=== PATIENT | male | born 1960 | race Hispanic/Latino ===

== ENCOUNTER 2021-01-19 07:31 | Emergency (ER) | payer BC, SELFPAY ==
[2021-01-19 08:03] LABS: Absolute Lymphocytes (CBC) 0.8 K/uL (0.7-4.9); Basophils % 0.7 % (0-1.3); Hematocrit 39.9 % (39.6-49.0); Lymphocytes % 17.3 % (15.3-44.8); MPV 9.8 fL (7.6-11.3); RBC Red Blood Cell Count 4.34 M/uL (4.33-5.43)
[2021-01-19 08:09] LABS: Protime INR 1.04
[2021-01-19] MEDS ORDERED: ONDANSETRON 4 MG/2 ML VIAL ONE (08:30)
[2021-01-19] MEDS ORDERED: dexAMETHasone 10 MG/ML VIAL ONE (08:30)
[2021-01-19] MEDS ORDERED: AZITHROMYCIN 250 MG TAB ONE (08:30)
[2021-01-19 09:05] LABS: ALT/SGPT 26 U/L (12-78); AST/SGOT 24 U/L (15-37); Albumin 3.2 g/dL (3.4-5.0); Alkaline Phosphatase 60 U/L (45-117); BUN Blood Urea Nitrogen 11 mg/dL (7-18); Bicarbonate 27 mmol/L (21-32); Bilirubin Direct 0.1 mg/dL (0-0.2); Bilirubin Total 0.4 mg/dL (0.2-1.0); Glucose Level 134 mg/dL (74-106); Magnesium 2.4 mg/dL (1.8-2.4); NT PRO-BNP 214 pg/mL (<125); Potassium 4.3 mmol/L (3.5-5.1); Protein, Total 7.2 g/dL (6.4-8.2); Sodium Level 138 mmol/L (136-145); Troponin (Emerg Dept Use Only) < 0.02 ng/mL (0.0-0.045)
--- NOTE | 2021-01-19 09:31 | RAD REPORT ---
EXAM DESCRIPTION: Ying Single View01/19/2021 8:25 am CLINICAL HISTORY: Chest pain COMPARISON: none FINDINGS: Moderate left and [id number] right pulmonary opacities. Heart is normal size IMPRESSION: Moderate left and [id number] right pulmonary opacities probably pneumonia
--- NOTE | 2021-01-19 09:32 | ER ---
Nurse's Notes [facility] Name: Benedicto Joy Age: 60 yrs Sex: Male : 1960 Arrival Date: 01/19/2021 Time: 07:33 Bed 6 Private MD: Diagnosis: Coronavirus infection, unspecified;Coronavirus as the cause of diseases classified elsewhere Presentation: 01/19 07:34 Chief complaint: Patient states: "I was positive for COVID 12 days ago and I haven't aa5 really been sick just a little bit of nausea and headache but over the last few days every time I take deep breath it makes me cough and I feel like I am not getting enough air into my lungs". Pt denies chest pain, denies SOB. 07:34 Acuity: RUSS 3 aa5 07:34 Onset of symptoms was December 2020. aa5 07:34 Coronavirus screen: Client presents with at least one sign or symptom that may indicate aa5 coronavirus-19. Standard/surgical mask placed on the client. Provider contacted for isolation considerations. Ebola Screen: Patient negative for fever greater than or equal to 101.5 degrees Fahrenheit, and additional compatible Ebola Virus Disease symptoms. Initial Sepsis Screen: Does the patient meet any 2 criteria? No. Patient's initial sepsis screen is negative. Does the patient have a suspected source of infection? Yes:. Risk Assessment: Do you want to hurt yourself or someone else? Patient reports no desire to harm self or others. 07:34 Method Of Arrival: Ambulatory aa5 Historical: - Allergies: 07:34 No Known Allergies; aa5 - PMHx: 07:34 Diabetes - NIDDM; Hypertension; Hyperlipidemia; aa5 - PSHx: 07:34 None; aa5 - Immunization history:: Adult Immunizations unknown. - Social history:: Smoking status: Patient denies any tobacco usage or history of. Patient/guardian denies using alcohol, street drugs, The patient lives with family. - Family history:: not pertinent. Screenin:27 Abuse screen: Denies threats or abuse. Nutritional screening: No deficits noted. jd3 Tuberculosis screening: No symptoms or risk factors identified. Fall Risk Ambulatory Aid- None/Bed Rest/Nurse Assist (0 pts). Gait- Normal/Bed Rest/Wheelchair (0 pts) Mental Status- Oriented to own ability (0 pts). Total Jorge Fall Scale indicates No Risk (0-24 pts). Assessment: 08:25 General: Appears in no apparent distress. comfortable, Behavior is calm, cooperative, jd3 appropriate for age. Pain: Complains of pain in chest Aggravated by coughing. Neuro: Level of Consciousness is awake, alert, obeys commands, Oriented to person, place, time, situation. Cardiovascular: Heart tones present Capillary refill < 3 seconds Patient's skin is warm and dry. Rhythm is regular. Respiratory: Reports pain with cough Airway is patent Respiratory effort is even, unlabored, Respiratory pattern is regular, symmetrical, Denies cough, shortness of breath. GI: No signs and/or symptoms were reported involving the gastrointestinal system. : No signs and/or symptoms were reported regarding the genitourinary system. EENT: No signs and/or symptoms were reported regarding the EENT system. Derm: Skin is intact, Skin is dry, Skin is normal, Skin temperature is warm. Musculoskeletal: Circulation, motion, and sensation intact. Range of motion: intact in all extremities. 09:27 Reassessment: Patient appears in no apparent distress at this time. No changes from jd3 previously documented assessment. Patient and/or family updated on plan of care and expected duration. Pain level reassessed. Patient is alert, oriented x 3, equal unlabored respirations, skin warm/dry/pink. 09:56 Reassessment: Patient appears in no apparent distress at this time. Patient and/or jd3 family updated on plan of care and expected duration. Pain level reassessed. Patient is alert, oriented x 3, equal unlabored respirations, skin warm/dry/pink. Patient states feeling better. Vital Signs: 07:34 BP 127 / 67; Pulse 74; Resp 18 S; Temp 98.5(O); Pulse Ox 100% on R/A; Weight 63.5 kg aa5 (R); Height 5 ft. 3 in. (160.02 cm) (R); Pain 0/10; 09:27 BP 115 / 64; Pulse 75; Resp 16 S; Pulse Ox 98% on R/A; jd3 07:34 Body Mass Index 24.80 (63.50 kg, 160.02 cm) aa5 ED Course: 07:33 Patient arrived in ED. as 07:34 Arm band placed on Patient placed in an exam room, on a stretcher. aa5 07:35 Asya Gentile MD is Attending Physician. ma2 07:50 Triage completed. aa5 08:07 Miles Krishnamurthy RN is Primary Nurse. jd3 08:22 Inserted saline lock: 20 gauge in right forearm, using aseptic technique. Blood jd3 collected. 08:25 XRAY Chest (1 view) In Process Unspecified. EDMS 08:27 Patient has correct armband on for positive identification. Placed in gown. Bed in low jd3 position. Call light in reach. Side rails up X 1. domestic violence counselor on. Pulse ox on. NIBP on. 09:57 No provider procedures requiring assistance completed. IV discontinued, intact, jd3 bleeding controlled, No redness/swelling at site. Pressure dressing applied. Administered Medications: 08:21 Drug: Decadron - Dexamethasone 10 mg Route: IVP; Site: right forearm; jd3 09:20 Follow up: Response: No adverse reaction jd3 08:21 Drug: AZITHromycin 500 mg Route: PO; jd3 09:20 Follow up: Response: No adverse reaction jd3 08:22 Drug: Zofran (Ondansetron) 4 mg Route: IVP; Site: right forearm; jd3 09:20 Follow up: Response: No adverse reaction jd3 Outcome: 09:31 Discharge ordered by . ma2 09:57 Discharged to home ambulatory, with family. jd3 09:57 Condition: stable 09:57 Discharge instructions given to patient, Instructed on discharge instructions, follow up and referral plans. medication usage, Demonstrated understanding of instructions, follow-up care, medications, Prescriptions given X 5 09:58 Patient left the ED. jd3 Signatures: Dispatcher [employer] Claritza Reed Audri, RN RN aa5 Davies, Jonathon, RN RN Asya Unger MD MD ma2
--- NOTE | 2021-01-19 09:32 | EDPHYS ---
Physician Documentation [facility] Name: Benedicto Joy Age: 60 yrs Sex: Male : 1960 Arrival Date: 01/19/2021 Time: 07:33 Bed 6 Private MD: ED Physician Asya Gentile HPI: 01/19 08:10 This 60 yrs old Male presents to ER via Ambulatory with complaints of Doesn't ma2 Feel Right. 08:10 This 60 yrs old Male presents to ER via Ambulatory with complaints of cough + ma2 covid. 08:10 Onset: gradually, 1 week(s) ago. Severity of pain: At its worst the pain was mild in ma2 the emergency department the pain is unchanged. here with cough and covid was +, no sob or diarrhea, no chest pain . Historical: - Allergies: 07:34 No Known Allergies; aa5 - PMHx: 07:34 Diabetes - NIDDM; Hypertension; Hyperlipidemia; aa5 - PSHx: 07:34 None; aa5 - Immunization history:: Adult Immunizations unknown. - Social history:: Smoking status: Patient denies any tobacco usage or history of. Patient/guardian denies using alcohol, street drugs, The patient lives with family. - Family history:: not pertinent. ROS: 08:10 Constitutional: Negative for fever, chills, and weight loss. ma2 08:10 All other systems are negative. Exam: 08:10 Constitutional: This is a well developed, well nourished patient who is awake, alert, ma2 and in no acute distress. Head/Face: Normocephalic, atraumatic. Eyes: Pupils equal round and reactive to light, extra-ocular motions intact. Lids and lashes normal. Conjunctiva and sclera are non-icteric and not injected. Cornea within normal limits. Periorbital areas with no swelling, redness, or edema. ENT: Nares patent. No nasal discharge, no septal abnormalities noted. Tympanic membranes are normal and external auditory canals are clear. Oropharynx with no redness, swelling, or masses, exudates, or evidence of obstruction, uvula midline. Mucous membranes moist. Neck: Trachea midline, no thyromegaly or masses palpated, and no cervical lymphadenopathy. Supple, full range of motion without nuchal rigidity, or vertebral point tenderness. No Meningismus. Chest/axilla: Normal chest wall appearance and motion. Nontender with no deformity. No lesions are appreciated. Cardiovascular: Regular rate and rhythm with a normal S1 and S2. No gallops, murmurs, or rubs. Normal PMI, no JVD. No pulse deficits. Respiratory: Lungs have equal breath sounds bilaterally, clear to auscultation and percussion. No rales, rhonchi or wheezes noted. No increased work of breathing, no retractions or nasal flaring. Abdomen/GI: Soft, non-tender, with normal bowel sounds. No distension or tympany. No guarding or rebound. No evidence of tenderness throughout. MS/ Extremity: Pulses equal, no cyanosis. Neurovascular intact. Full, normal range of motion. Neuro: Awake and alert, GCS 15, oriented to person, place, time, and situation. Cranial nerves II-XII grossly intact. Motor strength 5/5 in all extremities. Sensory grossly intact. Cerebellar exam normal. Normal gait. Vital Signs: 07:34 BP 127 / 67; Pulse 74; Resp 18 S; Temp 98.5(O); Pulse Ox 100% on R/A; Weight 63.5 kg aa5 (R); Height 5 ft. 3 in. (160.02 cm) (R); Pain 0/10; 09:27 BP 115 / 64; Pulse 75; Resp 16 S; Pulse Ox 98% on R/A; jd3 07:34 Body Mass Index 24.80 (63.50 kg, 160.02 cm) aa5 MDM: 07:35 Patient medically screened. ak2 08:10 Differential diagnosis: anxiety, gastroesophageal reflux disease (GERD), pneumonia. ma2 Data reviewed: vital signs, nurses notes. 09:30 Counseling: I had a detailed discussion with the patient and/or guardian regarding: the [facility] historical points, exam findings, and any diagnostic results supporting the discharge/admit diagnosis, the presence of at least one elevated blood pressure reading (>120/80) during this emergency department visit, the need for outpatient follow up. 01/19 07:35 Order name: Basic Metabolic Panel [facility] 01/19 07:35 Order name: CBC with Diff [facility] 01/19 07:35 Order name: LFT's; Complete Time: 09:33 [facility] 01/19 07:35 Order name: Magnesium; Complete Time: 09:33 ma2 01/19 07:35 Order name: NT PRO-BNP; Complete Time: 09:33 ma2 01/19 07:35 Order name: PT-INR; Complete Time: 08:32 2 01/19 07:35 Order name: Troponin (emerg Dept Use Only); Complete Time: 09:33 ma2 01/19 07:35 Order name: XRAY Chest (1 view); Complete Time: 09:33 ma2 01/19 07:35 Order name: EKG; Complete Time: 07:36 ma2 01/19 07:36 Order name: Basic Metabolic Panel; Complete Time: 09:33 EDMS 01/19 07:36 Order name: CBC with Automated Diff; Complete Time: 08:32 EDMS 01/19 07:35 Order name: Cardiac monitoring; Complete Time: 08:07 01/19 07:35 Order name: EKG - Nurse/Tech; Complete Time: 08:07 01/19 07:35 Order name: IV Saline Lock; Complete Time: 08:07 2 01/19 07:35 Order name: Labs collected and sent; Complete Time: 08:07 01/19 07:35 Order name: O2 Per Protocol; Complete Time: 08:07 01/19 07:35 Order name: O2 Sat Monitoring; Complete Time: 08:07 ma2 Administered Medications: 08:21 Drug: Decadron - Dexamethasone 10 mg Route: IVP; Site: right forearm; jd3 09:20 Follow up: Response: No adverse reaction jd3 08:21 Drug: AZITHromycin 500 mg Route: PO; jd3 09:20 Follow up: Response: No adverse reaction jd3 08:22 Drug: Zofran (Ondansetron) 4 mg Route: IVP; Site: right forearm; jd3 09:20 Follow up: Response: No adverse reaction jd3 Disposition: 01/19/21 09:31 Discharged to Home. Impression: Coronavirus infection, unspecified, Coronavirus as the cause of diseases classified elsewhere. - Condition is Stable. - Discharge Instructions: COVID-19. - Prescriptions for Zithromax Z- Waldo 250 mg Oral Tablet - take 1 tablet by ORAL route as directed for 5 days Day 1 - take two (2) tablets one time. Day 2, 3, 4 , 5 take one (1) tablet once daily.; 6 tablet. Medrol (Waldo) 4 mg Oral Tablets, Dose Pack - take 1 tablet by ORAL route as directed - follow package instructions; 1 packet. Albuterol Sulfate 90 mcg/actuation - inhale 1-2 puff by INHALATION route every 4-6 hours; 1 Inhaler. Diclofenac Sodium 75 mg Oral Tablet Sustained Release - take 1 tablet by ORAL route 2 times per day; 30 tablet. Zofran 4 mg Oral Tablet - take 1 tablet by ORAL route every 12 hours As needed; 20 tablet. - Medication Reconciliation Form, Thank You Letter, Antibiotic Education, Prescription Opioid Use form. - Follow up: Private Physician; When: Tomorrow; Reason: If symptoms return, Continuance of care. Signatures: Dispatcher [employer] EDMariia Magallanes RN RN aa5 Miles Krishnamurthy RN RN jd3 Asya Gentile MD MD ma2 Corrections: (The following items were deleted from the chart) 09:58 09:31 01/19/2021 09:31 Discharged to Home. Impression: Coronavirus infection, jd3 unspecified; Coronavirus as the cause of diseases classified elsewhere. Condition is Stable. Discharge Instructions: COVID-19. Prescriptions for Zithromax Z-Waldo 250 mg Oral Tablet - take 1 tablet by ORAL route as directed for 5 days Day 1 - take two (2) tablets one time. Day 2, 3, 4 , 5 take one (1) tablet once daily.; 6 tablet, Medrol (Waldo) 4 mg Oral Tablets, Dose Pack - take 1 tablet by ORAL route as directed - follow package instructions; 1 packet, Albuterol Sulfate 90 mcg/actuation - inhale 1-2 puff by INHALATION route every 4-6 hours; 1 Inhaler. and Forms are Medication Reconciliation Form, Thank You Letter, Antibiotic Education, Prescription Opioid Use. Follow up: Private Physician; When: Tomorrow; Reason: If symptoms return, Continuance of care. ma2
[2021-01-19 10:05] VITALS: TEMP 98.5
[2021-01-19 10:07] VITALS: BP 115/64; O2SAT 98
== END 2021-01-19 09:58 | disposition home or self-care (01) ==
LOC: ER 07:31
DX: U07.1 COVID-19 (principal)
CPT/HCPCS: 36415; 71045; 80048; 80076; 83735; 83880; 84484; 85025; 85610; 93005; 96374; 96375; 99284; J1100; J2405